=== PATIENT | male | born 1975 | race Caucasian/White ===

== ENCOUNTER 2021-06-01 08:00 | Outpatient (CLI) | payer BC ==
--- NOTE | 2021-06-01 11:14 | XRAY Report ---
PROCEDURE: Hand 3 View LT INDICATIONS: PAIN IN LEFT HAND TECHNIQUE: 3 views of the hand(s) acquired. COMPARISON: None. FINDINGS: BONES: Minimal fracture deformity of the fifth metacarpal base. The remaining visualized osseous stru ctures are maintained. Remote fracture deformity of the ulnar styloid. SOFT TISSUES: No focal abnormality. IMPRESSION: 1.Minimal displaced fracture of the fifth metacarpal base. Reviewed by: Kye Ceballos MD on 06/01/2021 11:13 AM PDT Approved by: Kye Ceballos MD on 06/01/2021 11:13 AM PDT Station ID: [id number]
== END 2021-06-01 23:59 | disposition home or self-care (01) ==
LOC: DI.S 08:00
PROVIDERS: ATTEND Physician Assistant
DX: S62.317A Displaced fracture of base of fifth metacarpal bone, left hand, initial encounter for closed fracture (principal)

== ENCOUNTER 2021-07-15 08:00 | Outpatient (CLI) | payer BC ==
--- NOTE | 2021-07-15 14:01 | XRAY Report ---
PROCEDURE: Hand 3 View LT INDICATIONS: LEFT HAND PAIN TECHNIQUE: 3 views of the hand(s) acquired. COMPARISON: None FINDINGS: Bones: No fractures or dislocations. No suspicious bony lesions. Soft tissues: No suspicious soft tissue calcifications. IMPRESSION: No acute fracture. No osseous lesion. If symptoms and/or clinical suspicion for pathology continue, f urther assessment with repeat plain films, or advanced imaging (e.g., CT, MRI, or bone scan) is recom mended for further assessment. Reviewed by: Hellen Machado MD on 07/15/2021 1:59 PM PDT Approved by: Hellen Machado MD on 07/15/2021 1:59 PM PDT Station ID: [id number]
== END 2021-07-15 23:59 | disposition home or self-care (01) ==
LOC: DI.S 08:00
PROVIDERS: ATTEND Physician Assistant Medical
DX: M79.642 Pain in left hand (principal)